=== PATIENT | female | born 1980 | race African-American/Black ===

== ENCOUNTER 2018-03-24 09:58 | Outpatient (CLI) | payer BC ==
[2018-03-24 11:17] LABS: Hemoglobin 13.4 g/dL (12.0-16.0); Mean Corpuscular HGB CONC 33.2 g/dL (32.0-36.0); Mean Corpuscular Hemoglobin 31.4 pg (27.0-31.0); Mean Corpuscular Volume 94.7 fL (78.0-98.0); Platelet Count 174 thou/uL (130-400); RBC Distribution Width 11.8 % (11.5-14.5); Red Blood Cell (RBC) Count 4.25 mill/uL (4.20-5.40); White Blood Cell (WBC) Count 7.8 thou/uL (4.8-10.8)
[2018-03-24 11:27] LABS: BHCG - Serum Negative (NEGATIVE); Pregs Control Background? CLEAR/WHITE (CLR/WHITE); Pregs Control Bar Appear? YES (CONTROL BAR)
== END 2018-03-24 09:59 | disposition home or self-care (01) ==
LOC: LABBT 09:58
PROVIDERS: ATTEND Obstetrics & Gynecology
DX: Z01.812 Encounter for preprocedural laboratory examination (principal); D21.9 Benign neoplasm of connective and other soft tissue, unspecified; N70.11 Chronic salpingitis
CPT/HCPCS: 84703; 85027; 86850; 86900; 86901

== ENCOUNTER 2018-03-29 07:41 | Inpatient (IN) | payer BC, OTHER ==
[2018-03-24 10:35] VITALS: BMI 42.2
--- NOTE | 2018-03-24 12:48 | HP ---
HISTORY OF PRESENT ILLNESS: Ms. Wen is a 37-year-old female who was initially seen on 03/08/2018 for IUD insertion and removal. During that time, she was noted to have an enlarged ut erus and noted for uterine fibroids. She did report heavy menstrual flow and pelvic pressure symptom s. She had the IUD removed and a repeat IUD Mirena was placed in hopes to help decrease her menorrha priyanka and with the post-insertion IUD check it appeared that the IUD had penetrated into the submucosal fibroid. It was thus removed. After the patient was made aware of the uterine fibroid and the symp toms she was having related to the findings of the uterine fibroid, she desired definitive surgical t herapy. PAST MEDICAL HISTORY: Negative. PAST SURGICAL HISTORY: Appendectomy when she was in the 6th grade, apparently it ruptured with some significant infection reported. SOCIAL HISTORY: She is nonsmoker, no alcohol use. FAMILY HISTORY: Diabetes in her brother, maternal grandmother and chronic hypertension in her parent s Her last menstrual period was 03/08/2018, flow is 7 days, which recorded as heavy. No intermenstrual breakthrough bleeding. LABORATORY AND X-RAY FINDINGS: Pap smear obtained on 03/11/2018 was normal. HPV was negative. Bact erial vaginosis was noted on wet OIL FIELD ROUSTABOUT-3 for complaint of vaginal discharge which has been treated with Flagyl. PHYSICAL EXAMINATION: VITAL SIGNS: Blood pressure was 112/62, pulse 90, respirations 18. Height 5 feet, weight 216 pounds with BMI of 42. GENERAL: Well-developed, well-nourished obese -[place] female. NECK: Supple, no thyromegaly or masses. CHEST: Clear to auscultation. HEART: Regular rate and rhythm. S1, S2 heart sounds, no murmurs, rubs or gallops. ABDOMEN: Soft, nontender vertical right to the midline incision noted from previous appendectomy sit e. PELVIC: Vulva and vagina had no lesions. Cervix had no lesions. Uterus was enlarged, 12-14 weeks s ize with the left fundal posterior fibroid noted. Adnexa nontender with no masses. Ultrasound performed on 03/08/2018 showed uterus measuring 10.8 x 9.2 x 7.3 cm with endometrial thick ness of 1.50 mm. There was a large posterior degenerating fibroid measuring 8.3 x 7.4 x 7.6 cm with a right hydrosalpinx noted in the right fallopian tube measuring 7.7 x 2 cm. Left ovary was not visi ble. Right ovary appeared normal. ASSESSMENT: This is a 37-year-old female with symptomatic 12-14 week uterine fibroi ds and right hydrosalpinx. She desired definitive surgical therapy. Previous history of ruptured ap pendectomy at age 12. PLAN: The plan is to proceed with a robotic total laparoscopic hysterectomy and removal of bilateral fallopian tubes. We will need to perform the EXCITE procedure for morcellation of the uterus for ti ssue bag retrieval. The patient is also aware of possibility of open laparotomy if extensive adhesio ns are encountered due to previous history of a ruptured appendicitis. She is set for surgery on . The patient was sent for preoperative laboratory assessment and consents for a hysterectomy .
[2018-03-29] MEDS ORDERED: Gabapentin 300 MG CAP ONE (08:23)
[2018-03-29] MEDS ORDERED: Famotidine/PF 20 mg/2ml Vial ONE (08:24)
[2018-03-29] MEDS ORDERED: CeleCOXIB 100 MG CAP ONE (08:24)
[2018-03-29] MEDS ORDERED: Levofloxacin 500 mg/D5W 100 ml Premix Bag ONE (08:25)
[2018-03-29] MEDS ORDERED: Clindamycin/D5W 900 mg/50 ml Premix Bag ONE (08:26)
[2018-03-29] MEDS ORDERED: Bupivacaine HCl 0.5%/Epinephrine 1:200,000/PF 30 ml Vial ONE (10:00)
[2018-03-29] MEDS ORDERED: Fentanyl 100 MCG/2 ML VIAL ONE ×3 (10:03→15:07)
[2018-03-29] MEDS ORDERED: Midazolam HCl 2 mg/2 ml Vial ONE (10:03)
[2018-03-29] MEDS ORDERED: Dexamethasone 20 MG/5 ML VIAL ONE (14:37)
[2018-03-29] MEDS ORDERED: ePHEDrine/0.9% NaCl/PF SYRINGE 50 mg/10 ml ONE (14:37)
[2018-03-29] MEDS ORDERED: Lidocaine 1% PF 5 ML VIAL ONE (14:37)
[2018-03-29] MEDS ORDERED: Ketorolac Tromethamine 30 MG/ML VIAL ONE (14:37)
[2018-03-29] MEDS ORDERED: PROPOFOL 200 MG/20 ML VIAL ONE (14:37)
[2018-03-29] MEDS ORDERED: Glycopyrrolate 0.2 MG/ML 5 ML SYRINGE ONE (14:37)
[2018-03-29] MEDS ORDERED: Ondansetron HCl/PF 4 MG/2 ML Vial ONE (14:37)
[2018-03-29] MEDS ORDERED: Promethazine HCl 25 MG/ML VIAL IM PRN (15:56)
[2018-03-29] MEDS ORDERED: diphenhydrAMINE 25 MG CAP PO PRN (15:56)
[2018-03-29] MEDS ORDERED: traMADol HCl 50 MG TAB PO PRN (15:56)
[2018-03-29] MEDS ORDERED: Simethicone Chewable 80 MG TAB PO PRN (15:56)
[2018-03-29] MEDS ORDERED: Morphine 4 MG/ML Carpuject SLOW IVP PRN (15:56)
[2018-03-29] MEDS ORDERED: Ondansetron HCl/PF 4 MG/2 ML Vial IVP PRN (15:56)
[2018-03-29] MEDS: Acetaminophen 1,000 MG in Premix Bag 1 BAG IVPB SCH (16:33)
[2018-03-29] MEDS: Lactated Ringer's 1,000 ML IV SCH ×2 (17:03→21:55)
[2018-03-29] MEDS: Ketorolac Tromethamine 30 MG/ML VIAL IVP SCH (18:33)
--- NOTE | 2018-03-29 20:51 | OP ---
DATE OF PROCEDURE: 03/29/2018 PREOPERATIVE DIAGNOSES: 1. A 37-year-old -[place] female with 14 to 16-week uterine fibroids with menorrhagia and pe lvic pain. 2. Bilateral hydrosalpinx noted. 3. History of previous ruptured appendix at age 12 with appendectomy. POSTOPERATIVE DIAGNOSES: 1. A 37-year-old -[place] female with 14 to 16-week uterine fibroids with menorrhagia and pe lvic pain. 2. Bilateral hydrosalpinx noted. 3. History of previous ruptured appendix at age 12 with appendectomy. 4. Pelvic adhesive disease confirmed. PROCEDURES PERFORMED: 1. Robotic-assisted total laparoscopic hysterectomy and bilateral salpingectomy. 2. Lysis of adhesions. 3. ExCITE procedure for removal of the large uterus. SURGEON: Clarissa Fernandes MD REGROOVER SURGEON: Fna Murphy DO ANESTHESIA: General endotracheal. ESTIMATED BLOOD LOSS: 50 mL. COMPLICATIONS: None. COUNTS: Correct x2. FINDINGS: 1. Pelvis was noted to have a draping of filmy and peritoneal-type adhesions that essentially cased over the uterus. These were taken down laparoscopically both sharply and bluntly. 2. Bilateral fallopian tubes with noted hydrosalpinges. Left and right ovary appeared normal. 3. Uterus approximately 14 to 16-week size with notable large posterior 8-cm intramural fibroid seen . 4. Bladder was watertight to over 300 mL of distention intraoperatively and post-procedure, and also clear urine draining from the Jasso catheter was noted. DISPOSITION: Recovery room, stable. DESCRIPTION OF PROCEDURE: The patient previously received informed consent in regard to surgery. Codey santos was taken back to the operating room, where she received general endotracheal anesthetic agent with out complications. She was placed in a dorsal lithotomy position with the use of Ming stirrups and prepped and draped in usual sterile fashion. A Jasso catheter was placed during the prep process. A side-arm speculum was then placed in the vagina. Anterior lip of the cervix was grasped with a sing le-tooth tenaculum. The uterus sounded to 10 cm. A size 10-cm MALLORY uterine manipulator with a 4.0-c m cervical cup was placed. Tenaculum and speculum were then removed. Attention was then turned to t he abdomen, where perspective trocar sites were infiltrated with 0.5% Marcaine with epinephrine. Dillon roximately a 2.5 cm supraumbilical incision was made above the previous scar site. A Veress needle w as then utilized to enter into the peritoneal cavity. The patient's pressure was noted to be less th an 5 mmHg and the abdomen was insufflated to a patient pressure of 15, approximately 4-1/2 liters of carbon dioxide gas. A size 12-mm trocar was then placed in the supraumbilical incision and the robot ic laparoscope was introduced through the trocar sleeve. The proper entry was confirmed and the pelv is was inspected with the previously mentioned findings. At this time, bilateral lower quadrant 8-mm trocars were placed for laparoscopic guidance along with a right upper quadrant 11-mm trocar. Once this was accomplished, the small GelPOINT device was then placed in the supraumbilical incision. The incision was extended along the trocar sleeve approximately 2.5 to 3 cm in width. The GelPOINT was then placed with the Uziel O retractor. A 12-mm trocar was then placed through the GelPOINT and the n the robotic laparoscope was placed through the GelPOINT trocar device and then the robot was docked after the patient was placed in Trendelenburg position. Monopolar scissors and bipolar fenestrated cautery were then utilized along with assistance from my s urgical assistants. As I carried out the dissection from the operative console, the adhesions from jeri zacarias previous ruptured appendectomy were taken down in avascular planes avoiding trauma to any of the b owel. Layering technique and incision under direct visualization brought through the adhesions that were draping over the uterus. Windows were developed isolating and exposing the uterus along with bi lateral adnexal structures. Once this was accomplished, the right fallopian tube with the hydrosalpi nx was grasped by my undertaker assistant with atraumatic grasper. The mesosalpinx was then cauterized with bip olar fenestrated cautery and incised with the monopolar scissors, and the right fallopian tube was re moved through the right upper quadrant undertaker assistant port. The right utero-ovarian ligament was then coa gulated with bipolar fenestrated cautery and transected with monopolar scissors. Serial cautery of t deann broad ligament, hugging close to uterus, were carried out until the right round ligament was reach ed. It was coagulated and transected. The anterior leaf of the broad ligament was entered. The alton dder was distended to ascertain its position with the scarring had brought it further up the lower ut erine segment. We continued to keep the bladder distended with approximately 200 mL of fluid to allo w for confirmation of its positioning while the vesicouterine peritoneum was incised. A good plane w as developed and this allowed for an easy dissection of the bladder past the cervical vaginal angle, which was delineated by the cervical cup from the manipulator. The right uterine vessels were then s keletonized both anteriorly and posteriorly, and this allowed for coagulation of them, the internal c ervical os region with bipolar fenestrated cautery. The left side of the uterus was then isolated and retracted to allow for grasping of the left fallopi an tube by my undertaker assistant. The mesosalpinx was coagulated with bipolar fenestrated cautery and the mes osalpinx was then incised, excising the left fallopian tube and bring that through the right upper qu adrant trocar site. The left utero-ovarian ligaments were coagulated and transected in similar fashi on. The broad ligament hugging close to uterine specimen again was coagulated and transected until t he left round ligament was reached. It was coagulated and transected. The completion of the bladder dissection was then carried out again with noting the position of the bladder and the vesicouterine peritoneum was incised developing this in a layering technique, dropping the bladder well below the c ervical vaginal angle atraumatically, and also further skeletonization of the uterine vessels was per formed. The uterine vessels were then coagulated at the internal cervical os on the left side in sim ilar fashion. Once this had been accomplished, the anterior colpotomy was then carried out carrying this from the 12 to 3 o'clock position and then 12 to 9 o'clock position. Posteriorly, the colpotomy was then completed from 6 to 3 and 6 to 9 o'clock position. This allowed for also cauterization of the remaining uterine vessels during this time securing hemostasis. Once this was accomplished and t he uterus was detached, the MALLORY uterine manipulator was removed from the uterus and then the pneumop eritoneum was re-created in the vaginal vault by the undertaker assistant. A Stratafix suture was then brought into the pelvis by my undertaker assistant and the vaginal cuff was closed in running continuous fashion startin g from the right angle back towards the left angle and full-thickness closure of the vaginal cuff toro k to the midline. Good hemostasis was confirmed. The Stratafix suture remaining and needle were the n removed. Pelvis again was irrigated and suctioned. Hemostasis along all the pedicle sites were co nfirmed. The bladder was distended and noted to be watertight to over 300 mL of distention. A 15-cm bag on a stick was then brought through the GelPOINT for tissue removal. An 8-mm scope was placed i n the right upper quadrant, which allowed for us to manipulate the specimen into the 15-mm Endobag on a stick. Once the bag had been in position, then we were able to use the robotic laparoscope to lizzette de manipulation of the specimen into the bag with assistance from my undertaker assistant in the right upper damien drant trocar site and along with a Jasen needle delivery driver and bipolar fenestrated cautery device. Once t he bag had been secured in the Endobag and a suture around it was utilized to close the bag, then we were able to deliver the bag up through the GelPOINT trocar site after the robot had been undocked. Then, the ExCITE procedure was utilized to remove the uterine specimen in morcellated fashion contain ed within the bag. When all the specimen had been removed, the bag was also removed along with the estrella Triplett O retractor. The fascia was then closed over the supraumbilical region with a running 0 Vicryl suture. Good approximation of the fascia was confirmed. The subcuticular stitches were then utilized to close all the trocar sites with 4-0 Monocryl and Dermabond. The vaginal cuff was then in spected vaginally and there was an area of oozing on the left angle and then a qugowp-ia-offuk stitch was placed with 0 Vicryl vaginally with securing the bleeding, which resolved. The patient was awak ened from anesthesia and then transferred to recovery room in stable condition.
[2018-03-29] MEDS: traMADol HCl 50 MG TAB PO PRN (23:23)
[2018-03-30] MEDS: Ketorolac Tromethamine 30 MG/ML VIAL IVP SCH ×2 (00:37→05:56)
[2018-03-30] MEDS: Acetaminophen 1,000 MG in Premix Bag 1 BAG IVPB SCH ×2 (00:37→05:55)
[2018-03-30 05:57] LABS: Hemoglobin 11.7 g/dL (12.0-16.0); Mean Corpuscular HGB CONC 32.7 g/dL (32.0-36.0); Mean Corpuscular Hemoglobin 31.1 pg (27.0-31.0); Mean Corpuscular Volume 95.1 fL (78.0-98.0); Mean Platelet Volume 11.5 fL (7.4-10.4); Platelet Count 154 thou/uL (130-400); Red Blood Cell (RBC) Count 3.74 mill/uL (4.20-5.40); White Blood Cell (WBC) Count 12.5 thou/uL (4.8-10.8)
[2018-03-30] MEDS: traMADol HCl 50 MG TAB PO PRN ×2 (06:02→12:21)
[2018-03-30] MEDS: Lactated Ringer's 1,000 ML IV SCH (07:11)
--- NOTE | 2018-03-30 08:07 | PDOC.EVN ---
Event Note - Event Note Event Note: Good pain control. Tolerating diet. Voiding. AFVSS Hct 35.6...UOP 2250+ abdomen soft /non distended. trocar sites clean and dry. extremities non tender. A/P:post op day 1 from robotic tlh with excite procedure for tissue removal. doing well. d.c home. f/u 2 and 6 weeks.
[2018-03-30 08:35] VITALS: BP 127/71; TEMP 98.8
[2018-04-03] MEDS ORDERED: Ibuprofen 800 MG TAB PO SCH (21:00)
== END 2018-03-30 13:05 | disposition home or self-care (01) | DRG 742 ==
LOC: SDC 07:41 → EDSTATUS 10:15 → 3SE 15:49 → OBSVTOIN 15:49
PROVIDERS: ADMIT Obstetrics & Gynecology; ATTEND Obstetrics & Gynecology
PROC: 0UT94ZZ Resection of Uterus, Percutaneous Endoscopic Approach (ICD-10-PCS; principal; 2018-03-29)
PROC: 0UT74ZZ Resection of Bilateral Fallopian Tubes, Percutaneous Endoscopic Approach (ICD-10-PCS; 2018-03-29)
PROC: 0DNW4ZZ Release Peritoneum, Percutaneous Endoscopic Approach (ICD-10-PCS; 2018-03-29)
PROC: 8E0W4CZ Robotic Assisted Procedure of Trunk Region, Percutaneous Endoscopic Approach (ICD-10-PCS; 2018-03-29)
DX: D25.9 Leiomyoma of uterus, unspecified (principal); Z68.41 Body mass index [BMI] 40.0-44.9, adult; N70.11 Chronic salpingitis; E66.9 Obesity, unspecified; N92.0 Excessive and frequent menstruation with regular cycle; N73.6 Female pelvic peritoneal adhesions (postinfective)
CPT/HCPCS: 36415; 85027; 88307; J0131; J0670; J1100; J1885; J1956; J2001; J2250; J2405; J2704; J3010; J3490; S0028

== ENCOUNTER 2019-03-29 03:47 | Emergency (ER) | payer BC, OTHER ==
[2019-03-29] MEDS ORDERED: Ondansetron PF 4 MG/2 ML Vial ONE ×2 (04:03→05:03)
[2019-03-29 04:20] LABS: #Eosinphils 0.3 thou/uL (0.0-0.7); #Monocytes 0.5 thou/uL (0.11-0.59); %Basophils 0.5 % (0.0-1.0); %Eosinophils 3.7 % (0.0-10.0); %Lymphocytes 22.6 % (21.0-51.0); %Monocytes 5.4 % (0.0-10.0); %Neutrophils 67.9 % (42.0-75.0); Hemoglobin 13.6 g/dL (12.0-16.0); Mean Corpuscular HGB CONC 33.6 g/dL (32.0-36.0); Mean Corpuscular Hemoglobin 31.8 pg (27.0-31.0); Mean Corpuscular Volume 94.7 fL (78.0-98.0); Mean Platelet Volume 10.6 fL (7.4-10.4); Platelet Count 183 thou/uL (130-400); Red Blood Cell (RBC) Count 4.27 mill/uL (4.20-5.40); White Blood Cell (WBC) Count 8.9 thou/uL (4.8-10.8)
[2019-03-29 04:50] LABS: ALT (SGPT) 19 U/L (8-55); AST (SGOT) 13 U/L (5-34); Albumin 4.2 g/dL (3.5-5.0); Alkaline Phosphatase 147 U/L (40-150); Anion Gap 12 mmol/L (10-20); BUN (Urea Nitrogen) 13 mg/dL (7.0-18.7); Bilirubin, Total 0.5 mg/dL (0.2-1.2); Calc. Creatinine Clearance 0 mL/min (70-130); Calcium 9.4 mg/dL (7.8-10.44); Carbon Dioxide 24 mmol/L (22-29); Chloride 106 mmol/L (98-107); Estimated GFR-MDRD 77; Glucose 98 mg/dL (70-105); Magnesium 2.1 mg/dL (1.6-2.6); Potassium 3.8 mmol/L (3.5-5.1); Protein, Total 7.2 g/dL (6.0-8.3); Sodium 138 mmol/L (136-145)
[2019-03-29 05:14] LABS: Bilirubin Negative (Negative); Blood, Urine Negative (Negative); Clarity Turbid (Clear); Glucose, Urine (Dipstick) Normal (Negative); Leukocyte 250 Leu/uL (Negative); Nitrite Negative (Negative); Protein, Urine (Dipstick) Negative (Neg-Trace); RBC/HPF 0-3 HPF (0-3); Urobilinogen Normal mg/dL (Less than 2)
[2019-03-29 05:23] LABS: Bacteria/HPF 2+ HPF (None Seen)
== END 2019-03-29 05:55 | disposition home or self-care (01) ==
LOC: ERS 03:47
DX: R11.2 Nausea with vomiting, unspecified (principal); N39.0 Urinary tract infection, site not specified
CPT/HCPCS: 80053; 81003; 81015; 83735; 85025; 87086; 96361; 96374; 96376; J2405

== ENCOUNTER 2020-11-13 12:49 | Outpatient (CLI) | payer BC | END 2020-11-13 12:50 | disposition home or self-care (01) | LOC: BICMAMMO 12:49 | PROVIDERS: ATTEND Family Medicine | DX: Z12.31 Encounter for screening mammogram for malignant neoplasm of breast (principal); Z80.3 Family history of malignant neoplasm of breast | CPT/HCPCS: 77063; 77067 ==

== ENCOUNTER 2023-04-30 09:52 | Outpatient (CLI) | payer BC | END 2023-04-30 09:53 | disposition home or self-care (01) | LOC: BICMAMMO 09:52 | PROVIDERS: ATTEND Nurse Practitioner Family | DX: Z12.31 Encounter for screening mammogram for malignant neoplasm of breast (principal); Z80.3 Family history of malignant neoplasm of breast | CPT/HCPCS: 77063; 77067 ==